=== PATIENT | female | born 1985 | race American Indian/Alaskan Native ===

== ENCOUNTER 2019-10-08 19:25 | Emergency (ER) | payer SELFPAY ==
--- NOTE | 2019-10-08 19:44 | Event Note ---
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 Further treatment and workup at subsequent clinical providers discretion. Patient/guardian urged not to elope from the ED as their condition may be serious if not clinically assessed and managed. Initial orders include: labs, UA, US
[2019-10-08 20:13] LABS: Bacteria,Urine 3+ /HPF (Negative); Bilirubin,Urine NEG (Negative); Blood,Urine NEG (Negative); Color,Urine Yellow (Yellow); Mucus,Urine 3+ /HPF; Protein,Urine <15 mg/dL mg/dL (Negative); Sperm,Urine FEW /HPF (NP)
[2019-10-08 20:26] LABS: Basophils % (Auto) 0.5 % (0.0-1.8); Eosinophils # (Auto) 0.1 K/mm3 (0.0-0.4); Hematocrit 37.9 % (30.3-42.9); Hemoglobin 12.7 gm/dl (10.1-14.3); Lymphocytes # (Auto) 3.2 K/mm3 (1.2-5.4); Lymphocytes % (Auto) 42.6 % (13.4-35.0); Mean Corpuscular HGB Conc 33 % (30-34); Mean Corpuscular Volume 89 fl (79-97); Monocytes # (Auto) 0.6 K/mm3 (0.0-0.8); Monocytes % (Auto) 8.1 % (0.0-7.3); Platelet Count 329 K/mm3 (140-440); Red Blood Count 4.25 M/mm3 (3.65-5.03); Red Cell Distribution Width 13.8 % (13.2-15.2)
[2019-10-08 20:44] LABS: Alanine Aminotransferase 11 units/L (7-56); Albumin 3.8 g/dL (3.9-5); BUN/Creatinine Ratio 16; Blood Urea Nitrogen 14 mg/dL (7-17); Calcium 8.6 mg/dL (8.4-10.2); Hemolysis Index 2
--- NOTE | 2019-10-08 21:25 | Ultrasound Report ---
ULTRASOUND PELVIS INDICATION / CLINICAL INFORMATION: left lower abd pain. TECHNIQUE: Transabdominal and Transvaginal. Duplex Color Doppler used: Yes. COMPARISON: None available FINDINGS: UTERUS: Present. Retroverted and retroflexed. - Appearance (if present): No significant abnormality. - Size in cm (if present): 6.2 x 4.3 x 4.1. - Endometrial Complex (if present): No significant abnormality.. Thickness in cm (if measured) = 0.4 - Mass lesions: None. - Additional findings: None. RIGHT ADNEXA: There is a simple cyst in the right ovary measuring up to 5.4 x 4.3 cm. There is a flui d-filled tubular structure adjacent to the right ovary suggestive of hydrosalpinx. LEFT ADNEXA: No significant ovarian cyst or mass. Normal color Doppler blood flow. URINARY BLADDER: No significant abnormality. FREE FLUID: Trace pelvic free fluid. ADDITIONAL FINDINGS: None. IMPRESSION: 1. There is a 5.4 cm simple cyst in the right ovary. Recommend follow-up pelvic ultrasound in 6-12 we eks to ensure resolution. 2. A fluid-filled tubular structure adjacent to the right ovary most likely represent hydrosalpinx. Signer Name: Justina Leonard MD Signed: 10/08/2019 9:21 PM Workstation Name: [email or web address]
--- NOTE | 2019-10-09 00:22 | Emergency Department Report ---
ED Abdominal Pain HPI - General Chief Complaint: Abdominal Pain Stated Complaint: ABD PAIN PUI?: No Time Seen by Provider: 10/08/19 19:41 Source: patient Mode of arrival: Ambulatory Limitations: No Limitations - History of Present Illness Initial Comments: Patient is a 34-year-old female that presents emergency room with complaints of left lower quadrant pain. Patient dates her pain started 4 days ago. Patient states her pain is worsening. Patient states she went to an urgent care 4 days ago and was told to have an ultrasound but was unable to get it done because the urgent care did not have the ultrasound machine.. Patient states the pain is worsening. Patient states the pain is a 6 out of 10. Patient states the pain is better with rest and worse with palpation and movement. Patient states she has taken control. Patient states she is having regular periods. MD Complaint: abdominal pain -: Sudden Location: LLQ Radiation: none Migration to: no migration Severity: moderate, severe Severity scale (0 -10): 6 Quality: stabbing Consistency: constant Improves With: rest Worsens With: movement Associated Symptoms: denies: nausea, vomiting, diarrhea, fever, chills, constipation, dysuria, hematemesis, hematochezia, melena, hematuria, anorexia, syncope - Related Data LMP (females 10-50): 3 weeks Previous Rx's Medication Instructions Recorded Last Taken Type Acetaminophen/Codeine [Tylenol 1 tab PO Q4HR PRN #12 tablet 10/09/19 Unknown Rx /Codeine # 3 tab] Docusate Sodium [Colace] 100 mg PO TID PRN #30 capsule 10/09/19 Unknown Rx Allergies Allergy/AdvReac Type Severity Reaction Status Date / Time No Known Allergies Allergy Unverified 10/08/19 19:40 ED Review of Systems ROS: Stated complaint: ABD PAIN Other details as noted in HPI Constitutional: denies: chills, fever Eyes: denies: eye pain, eye discharge, vision change ENT: denies: ear pain, throat pain Respiratory: denies: cough, shortness of breath, wheezing Cardiovascular: denies: chest pain, palpitations Endocrine: no symptoms reported Gastrointestinal: abdominal pain. denies: nausea, diarrhea Genitourinary: denies: urgency, dysuria, discharge Musculoskeletal: denies: back pain, joint swelling, arthralgia Skin: denies: rash, lesions Neurological: denies: headache, weakness, paresthesias Psychiatric: denies: anxiety, depression Hematological/Lymphatic: denies: easy bleeding, easy bruising ED Past Medical Hx - Past Medical History Previous Medical History?: Yes Hx Hypertension: Yes Additional medical history: Obesity, Left Swollen Fallopian Tube - Surgical History Past Surgical History?: Yes Hx Appendectomy: Yes - Social History Smoking Status: Never Smoker Substance Use Type: None - Medications Home Medications: Home Medications Medication Instructions Recorded Confirmed Last Taken Type Acetaminophen/Codeine [Tylenol 1 tab PO Q4HR PRN #12 tablet 10/09/19 Unknown Rx /Codeine # 3 tab] Docusate Sodium [Colace] 100 mg PO TID PRN #30 capsule 10/09/19 Unknown Rx ED Physical Exam - General Limitations: No Limitations General appearance: alert, in no apparent distress - Head Head exam: Present: atraumatic, normocephalic - Eye Eye exam: Present: normal appearance - ENT ENT exam: Present: mucous membranes moist - Neck Neck exam: Present: normal inspection - Respiratory Respiratory exam: Present: normal lung sounds bilaterally. Absent: respiratory distress - Cardiovascular Cardiovascular Exam: Present: regular rate, normal rhythm. Absent: systolic murmur, diastolic murmur, rubs, gallop - GI/Abdominal GI/Abdominal exam: Present: soft, tenderness (Extreme left lower quadrant tenderness), normal bowel sounds - Extremities Exam Extremities exam: Present: normal inspection - Back Exam Back exam: Present: normal inspection - Neurological Exam Neurological exam: Present: alert, oriented X3 - Psychiatric Psychiatric exam: Present: normal affect, normal mood - Skin Skin exam: Present: warm, dry, intact, normal color. Absent: rash ED Course Vital Signs 10/08/19 19:35 Temperature 98.6 F Pulse Rate 109 H Respiratory 18 Rate Blood Pressure 142/93 O2 Sat by Pulse 99 Oximetry - Reevaluation(s) Reevaluation #1: I discussed all results and clinical findings with patient. I discussed plan of care with patient. Patient agrees with plan of care. Patient is stable for discharge. Patient will be discharged home. Patient given discharge instructions. Patient voiced understanding of discharge instructions. 10/09/19 01:29 ED Medical Decision Making - Lab Data Result diagrams: 10/08/19 20:07 10/08/19 20:07 - Radiology Data Radiology results: report reviewed CT ABDOMEN AND PELVIS WITH CONTRAST INDICATION: MAIN: llq pain, 100cc [id number]. TECHNIQUE: Axial CT images were obtained through the abdomen and pelvis after 100 cc Omnipaque [address] scans at this location are performed using CT dose reduction for ALARA by means of automated exposure control. COMPARISON: None available. FINDINGS: LOWER CHEST: No significant abnormality. LIVER: No significant abnormality. GALLBLADDER: No significant abnormality. BILE DUCTS: No significant abnormality. PANCREAS: No significant abnormality. SPLEEN: No significant abnormality. ADRENALS: No significant abnormality. RIGHT KIDNEY and URETER: No significant abnormality. LEFT KIDNEY and URETER: No significant abnormality. STOMACH and SMALL BOWEL: No significant abnormality. COLON: No significant abnormality. APPENDIX: Surgically absent. PERITONEUM: No free fluid. No free air. No fluid collection. LYMPH NODES: No significant adenopathy. AORTA and ARTERIES: No significant abnormality. IVC and VEINS: No significant abnormality. URINARY BLADDER: No significant abnormality. REPRODUCTIVE ORGANS: 4.9 cm right ovarian cyst. Uterus and left ovary within no rmal limits. ADDITIONAL FINDINGS: None. SKELETAL SYSTEM: No significant abnormality. IMPRESSION: 1. 4.9 cm right ovarian cyst. No free fluid.. ULTRASOUND PELVIS INDICATION / CLINICAL INFORMATION: left lower abd pain. TECHNIQUE: Transabdominal and Transvaginal. Duplex Color Doppler used: Yes. COMPARISON: None available FINDINGS: UTERUS: Present. Retroverted and retroflexed. - Appearance (if present): No significant abnormality. - Size in cm (if present): 6.2 x 4.3 x 4.1. - Endometrial Complex (if present): No significant abnormality.. Thickness in cm (if measured) = 0.4 - Mass lesions: None. - Additional findings: None. RIGHT ADNEXA: There is a simple cyst in the right ovary measuring up to 5.4 x 4.3 cm. There is a fluid-filled tubular structure adjacent to the right ovary suggestive of hydrosalpinx. LEFT ADNEXA: No significant ovarian cyst or mass. Normal color Doppler blood flow. URINARY BLADDER: No significant abnormality. FREE FLUID: Trace pelvic free fluid. ADDITIONAL FINDINGS: None. IMPRESSION: 1. There is a 5.4 cm simple cyst in the right ovary. Recommend follow-up pelvic ultrasound in 6-12 weeks to ensure resolution. 2. A fluid-filled tubular structure adjacent to the right ovary most likely represent hydrosalpinx. - Medical Decision Making Patient is a 34-year-old female that presents emergency room with complaints of left lower quadrant abdominal pain. Patient had labs done which are essentially unremarkable. Patient then had a transvaginal ultrasound and it showed a right ovarian cyst and a right hydrosalpinx. Since the pain that the patient presented with was on the left lower quadrant, a CT scan of the abdomen was done and it was negative for acute findings except for an ovarian cyst. Patient left lower quadrant was negative on CT. Patient is stable for discharge. Patient discharged home. - Differential Diagnosis Diverticulitis, colitis, abdominal pain, ovarian cyst. Critical care attestation.: If time is entered above; I have spent that time in minutes in the direct care of this critically ill patient, excluding procedure time. ED Disposition Clinical Impression: LLQ abdominal pain, Hydrosalpinx Ovarian cyst Qualifiers: Laterality: right Qualified Code(s): N83.201 - Unspecified ovarian cyst, right side Constipation Qualifiers: Constipation type: unspecified constipation type Qualified Code(s): K59.00 - Constipation, unspecified Disposition: TO HOME OR SELFCARE Is pt being admited?: No Does the pt Need Aspirin: No Condition: Stable Instructions: Ovarian Cyst (ED), Constipation (ED), High Fiber Diet (ED), Abdominal Pain (ED) Additional Instructions: Patient to follow-up with primary care in 2 to 3 days. Patient to follow-up with LAYBOY OPERATOR in 2 to 3 days. Patient to rest. Patient to increase water. Patient to avoid strenuous exercise or heavy lifting until cleared by LAYBOY OPERATOR. Nothing per vagina until cleared by LAYBOY OPERATOR. patient to take Tylenol or ibuprofen as needed for pain. Patient to eat a high-fiber diet. Patient to increase water. Patient to return to the ER if condition worsens, changes or new symptoms arise. Prescriptions: Docusate Sodium [Colace] 100 mg PO TID PRN #30 capsule PRN Reason: Constipation Acetaminophen/Codeine [Tylenol /Codeine # 3 tab] 1 tab PO Q4HR PRN #12 tablet PRN Reason: Pain Referrals: PRIMARY CARE, [Primary Care Provider] - 2-3 Days CHA ZENDEJAS MD [Staff Physician] - 2-3 Days Time of Disposition: 01:33
--- NOTE | 2019-10-09 01:24 | Cat Scan Report ---
CT ABDOMEN AND PELVIS WITH CONTRAST INDICATION: MAIN: llq pain, 100cc [id number]. TECHNIQUE: Axial CT images were obtained through the abdomen and pelvis after 100 cc Omnipaque [address] scans at this location are performed using CT dose reduction for ALARA by means of automated exposure control. COMPARISON: None available. FINDINGS: LOWER CHEST: No significant abnormality. LIVER: No significant abnormality. GALLBLADDER: No significant abnormality. BILE DUCTS: No significant abnormality. PANCREAS: No significant abnormality. SPLEEN: No significant abnormality. ADRENALS: No significant abnormality. RIGHT KIDNEY and URETER: No significant abnormality. LEFT KIDNEY and URETER: No significant abnormality. STOMACH and SMALL BOWEL: No significant abnormality. COLON: No significant abnormality. APPENDIX: Surgically absent. PERITONEUM: No free fluid. No free air. No fluid collection. LYMPH NODES: No significant adenopathy. AORTA and ARTERIES: No significant abnormality. IVC and VEINS: No significant abnormality. URINARY BLADDER: No significant abnormality. REPRODUCTIVE ORGANS: 4.9 cm right ovarian cyst. Uterus and left ovary within normal limits. ADDITIONAL FINDINGS: None. SKELETAL SYSTEM: No significant abnormality. IMPRESSION: 1. 4.9 cm right ovarian cyst. No free fluid.. Signer Name: Jameson Mai MD Signed: 10/09/2019 1:19 AM Workstation Name: [email or web address]
[2019-10-09 01:49] VITALS: BP 130/78
== END 2019-10-09 01:48 | disposition home or self-care (01) ==
LOC: ED 19:25
DX: N70.11 Chronic salpingitis (principal); K59.00 Constipation, unspecified; N83.209 Unspecified ovarian cyst, unspecified side; R10.32 Left lower quadrant pain; I10 Essential (primary) hypertension; Z90.49 Acquired absence of other specified parts of digestive tract; Z79.899 Other long term (current) drug therapy
CPT/HCPCS: 36415; 74177; 76830; 76856; 80053; 81001; 83690; 84703; 85025; 99284; Q9967